=== PATIENT | male | born 1960 | race African-American/Black ===

== ENCOUNTER 2017-03-06 12:49 | Emergency (ER) | payer MEDICAID, OTHER ==
[~2017-03-06] VITALS: Ht 180.3 cm; Wt 80.0 kg
[~2017-03-06 12:49] MED LIST: CEPH500C2; THORAZINE; ZYPREXA
[2017-03-06 12:56] VITALS: BP 133/77
[2017-03-06] MEDS ORDERED: CIPR-263 PO (13:01)
[2017-03-06] MEDS ORDERED: NEOM10DR11 OT (13:01)
== END 2017-03-06 15:57 | disposition home or self-care (01) ==
LOC: ER 14:45
DX: J01.90 Acute sinusitis, unspecified (principal); H66.90 Otitis media, unspecified, unspecified ear; M19.90 Unspecified osteoarthritis, unspecified site; Z90.49 Acquired absence of other specified parts of digestive tract; Z87.891 Personal history of nicotine dependence; Z87.19 Personal history of other diseases of the digestive system
CPT/HCPCS: 99282

== ENCOUNTER 2019-02-10 17:01 | Emergency (ER) | payer MEDICAID ==
[~2019-02-10] VITALS: Ht 180.3 cm; Wt 75.0 kg
[~2019-02-10 17:01] MED LIST changes: +CIPR-263 PO; +NEOM10DR11 OT
[2019-02-10] MEDS ORDERED: TETANUS, DIPHTHERIA, PERTUSSIS VAC/PF 0.5ML (>7YR OLD) IM ONE (20:15)
[2019-02-10] MEDS ORDERED: LIDOCAINE HCL/PF 1% 10 MG/ML 5ML VIAL IJ ONE (20:15)
[2019-02-10] MEDS ORDERED: BACITRACIN ZINC OINT UDPKT TOP ONE (20:15)
[2019-02-10] MEDS ORDERED: LORAZEPAM 2MG/ML CPJ IV ONE (20:30)
[2019-02-10] MEDS ORDERED: MORPHINE SULFATE 4 MG/ML CPJ (NOT FOR IM USE) IV ONE (20:30)
[2019-02-10] MEDS ORDERED: KETOROLAC 15MG/ML VIAL IV ONE (21:30)
[2019-02-10] MEDS ORDERED: VANCOMYCIN 1 G PREMIX 200 ML IV SCH (21:30)
[2019-02-10] MEDS ORDERED: PIPERACILLIN/TAZ 3.375G PREMIX 50 ML IV ONE (21:30)
[2019-02-10 23:33] VITALS: BP 108/81
== END 2019-02-10 23:54 | disposition home or self-care (01) ==
LOC: ER 17:01
DX: L02.212 Cutaneous abscess of back [any part, except buttock and flank] (principal); Z90.49 Acquired absence of other specified parts of digestive tract; Z79.899 Other long term (current) drug therapy
CPT/HCPCS: 10060; 90471; 90715; 96365; 96366; 96367; 96375; 99283; A4217; J1885; J2060; J2270; J2543; J3370; J3490; Z7610

== ENCOUNTER 2019-09-04 04:41 | Emergency (ER) | payer MEDICAID ==
[~2019-09-04] VITALS: Ht 175.3 cm; Wt 62.0 kg
[2019-09-04] MEDS ORDERED: IBUPROFEN 600MG TABLET PO STA (06:12)
[2019-09-04] MEDS ORDERED: ONDANSETRON 4MG ODT PO ONE (06:30)
[2019-09-04 06:31] LABS: HEMATOCRIT. 40.3 % (42.0-52.0); HEMOGLOBIN. 13.2 g/dL (14.0-18.0); MEAN CORPUSCULAR HEMOGLOBIN 28.3 pg (28.0-32.0); MEAN CORPUSCULAR VOLUME 86.6 fL (80.0-94.0); MEAN PLATELET VOLUME 8.1 fl (7.4-10.4); PLATELET 205 x1000/uL (130-400); RED BLOOD CELL COUNT 4.65 mill/uL (4.7-6.1); RED CELL DISTRIBUTION WIDTH 13.6 % (11.6-14.6)
[2019-09-04 06:40] LABS: CHLORIDE 94 mEq/L (98-107)
[2019-09-04] MEDS ORDERED: SODIUM CHLORIDE 0.9% 1,000 ML IV ONE (06:58)
[2019-09-04 08:38] LABS: PLATELET ESTIMATE NORMAL
[2019-09-04] MEDS ORDERED: LEVOFLOXACIN 250MG TABLET PO SCH (11:00)
[2019-09-04 13:39] VITALS: BP 110/68
== END 2019-09-04 13:42 | disposition home or self-care (01) ==
LOC: ER 04:41
DX: J18.9 Pneumonia, unspecified organism (principal); R11.2 Nausea with vomiting, unspecified; R19.7 Diarrhea, unspecified; Z87.891 Personal history of nicotine dependence; Z90.49 Acquired absence of other specified parts of digestive tract; Z98.890 Other specified postprocedural states; Z87.19 Personal history of other diseases of the digestive system; Z79.899 Other long term (current) drug therapy
CPT/HCPCS: 36415; 71045; 80053; 83690; 83880; 84484; 85025; 87040; 87070; 87430; 87804; 93005; 99284; J7030; Q0162

== ENCOUNTER 2020-09-07 17:07 | Emergency (ER) | payer MEDICAID ==
[~2020-09-07] VITALS: Ht 175.3 cm; Wt 75.0 kg
[2020-09-07 19:16] VITALS: BP 100/77
== END 2020-09-07 20:38 | disposition home or self-care (01) ==
LOC: ER 17:07
DX: U07.1 COVID-19 (principal); R03.0 Elevated blood-pressure reading, without diagnosis of hypertension
CPT/HCPCS: 87635; 99283